=== PATIENT | male | born 1945 | race Caucasian/White ===

== ENCOUNTER → 2016-08-16 10:01 | Outpatient (CLI) | payer MEDICARE ==
--- NOTE | 2016-08-16 14:19 | NUR ---
Nutrition education for hyperglycemia: Pt and present for education. Pt reports only eating 1 meal a day. Reports drinking ~4 ounces of whisky on the rocks every evening after dinner. Pt states he does not eat very much at meals. Pt drinks mostly water to quench thirst. Pt is having trouble with his knees so he is not playing much golf these days. 70 year old male Dx: Hyperglycemia Ht: 5'11" Wt: 235# IBW: 172# +/-10% BMI: 33 Reviewed CHO containing foods and the affect CHO have on glucose. Advised pt to start eating at least three meals every day at about the same time every day. Reviewed sample menus with emphasis on CHO. Reviewed the plate method for meal planning. Provided pt with printed diet information and RDN name and phone number. Pt with good understanding of information provided. RDN will be available if needed. Thank you for the consult.
== END | disposition home or self-care (01) ==
LOC: D.FANS 10:01
DX: R73.9 Hyperglycemia, unspecified (principal)

== ENCOUNTER → 2018-03-14 09:49 | Outpatient (CLI) | payer MEDICARE ==
[~2018-03-14 09:49] MED LIST: ASPIRIN EC81 M1 PO; ELIQUIS2.5 MG PO; HYZAAR 100-25 T1 TAB PO; KEFLEX500 MG PO; MOBIC7.5 MG PO; NORVASC10 MG PO; OXYCODONE HCL5 MG PO; PRAVACHOL40 MG PO; TENORMIN100 MG PO; VISTARIL50 MG PO
[2018-03-27 22:13] VITALS: BMI 34.6
== END | disposition home or self-care (01) ==
LOC: D.LABREF 09:49
DX: M17.11 Unilateral primary osteoarthritis, right knee (principal); Z11.8 Encounter for screening for other infectious and parasitic diseases

== ENCOUNTER 2018-03-21 10:00 | Inpatient (IN) | payer OTHER ==
[~2018-03-21] VITALS: Ht 180.3 cm; Wt 112.7 kg
--- NOTE | ~2018-03-21 | OP ---
PATIENT NAME: ASUNCION CASEY MEDICAL RECORD: [id number] :44 LOCATION:[id number] ADMISSION DATE:03/27/18 SURGEON: CULLEN WICK DO DATE OF OPERATION: 03/27/2018 PROCEDURE PERFORMED: Right total knee arthroplasty. PREOPERATIVE DIAGNOSIS: Right end-stage knee osteoarthritis. POSTOPERATIVE DIAGNOSIS: Right end-stage knee osteoarthritis. INDICATIONS: Mr. Casey is a 72-year-old male who presented to my office last year. He said he wanted to do everything he could to not have total knee replacement. We tried rounds of injections, which eventually did not work for him. He was tired of affecting his activities of daily living and wanted a total knee replacement. He is warned of the risks and benefits of the procedure, warned of infection, bleeding, need for further surgery, damage to nerves and vessels. He was okay with that and blood clots also the risk and he consented to the procedure. SURGEON: Cullen Wick DO DESCRIPTION OF PROCEDURE: The patient was given a block in the preoperative area by anesthesia and taken to the operative suite, laid in supine position, given general anesthetic and intubated, given 2 grams of Ancef preoperatively. The right knee was prepped and draped in a sterile fashion. Timeout was performed, everyone was in agreement with the correct side, site and patient and procedure. The incision was then marked out and Ioban placed over the incision. We did not use a tourniquet during this total knee procedure. Incision was made down to the capsule itself coagulating all bleeders with the Aquamantys and then the capsulotomy was performed with a fresh blade using medial parapatellar incision. Again, all bleeders were coagulated throughout the case with the Aquamantys. The fat pad was then removed. The patella was everted and milled down to fit the patellar implant. The knee was then flexed up and the intramedullary guide was put in reaming into the intramedullary canal. Once the distal femur guide was put into place, pins were put in to hold the jig and it was cut. Then the tibia was exposed and the tibia was cut as well and the knee was brought into extension and lamina media reporter was used to open up the knee and all the debris from the cut and the menisci were removed and the posterior capsule was treated at that time with the Aquamantys as well as the medial and lateral geniculates. The extension block then fit well. The knee was then flexed up and measured the femur, measured to be 70. The implant was put in, the poly tray was floated in for the tibia and tibial tray arranged and then marked the rotation. This was removed and the tibia was drilled and the femur was also drilled. The trial was then removed and the femur, tibia was exposed and sized to be 75. This was punched and drilled and the cement was mixed and then cemented was placed on the tibia as well as on the implant, impacted twice and excess cement was removed and the femur was impacted into place and then the cement was put on the patella itself and the patella implant. The squeezer was used to squeeze it down and the excess cement was removed. Once the cement dried, trialed the knee with a 10 poly and that seemed to fit very well, had good medial and lateral stability as well and this was then inserted, a 10 poly. The locking mechanism was used to lock it into place. Then, the capsule was closed with #1 Vicryl in [id number] fashion and Stratafix was ran on the capsule. Vancomycin powder and Surgicel beads were placed in the joint and OPERATIVE REPORT [id number] ASUNCION CASEY vancomycin powder was placed on top of the joint as well and then the skin was closed with 2-0 Vicryl in inverted interrupted fashion. A ZipLine was put on the Adaptic, 4 x 4s, ABD, Webril, Jonathan wrap and a DIAMANTE hose stocking was then placed on the knee up to the knee. BLOOD LOSS: Approximately 150 mL. COMPLICATIONS: None. TRANSINT:[id number] Voice Confirmation ID: [id number] DOCUMENT ID: [id number] CULLEN WICK DO at 0720 CC: [id number] DICTATION DATE: 03/27/18 170 TIP PUNCHER: 03/27/18 1828 ADM IN [place] [id number] [place] [id number]
[~2018-03-21 10:00] MED LIST changes: -ELIQUIS2.5 MG PO; -KEFLEX500 MG PO; -OXYCODONE HCL5 MG PO; -VISTARIL50 MG PO
[2018-03-21 11:04] LABS: BASOPHILS 1.2 % (0-2); EOSINOPHILS 3.3 % (0-7); HEMATOCRIT 45.5 % (42.0-54.0); HEMOGLOBIN 15.7 g/dL (13.5-17.5); IMMATURE GRANULOCYTES 0.2 % (0-5); LYMPHOCYTES 25.2 % (15-50); MCH 31.5 pg (26.0-34.0); MCHC 34.5 g/dL (31.0-37.0); MCV 91.2 fL (80.0-100.0); MONOCYTES 10.3 % (2-11); NEUTROPHILS 59.8 % (40-80); PLATELET COUNT 267 10x3/uL (130-400); RBC 4.99 10x6/uL (4.20-6.10); WBC 6.4 10x3/uL (4.8-10.8)
[2018-03-21 11:16] LABS: CALC OSMOLALITY 276 mosm/kg (275-300); CALCIUM 8.8 mg/dL (8.5-10.1); CARBON DIOXIDE 33.6 mmol/L (21.0-32.0); CHLORIDE - SERUM 100 mmol/L (98-107); GLUCOSE 97 mg/dL (74-106); POTASSIUM - SERUM 3.7 mmol/L (3.5-5.1); SODIUM 137 mmol/L (136-145); UREA NITROGEN 22 mg/dL (7-18); eGFR NON AFRICAN AMERICAN 78 mL/min (90-120)
[2018-03-21 11:37] LABS: INR 0.91 (0.85-1.17); PROTIME 11.9 SECONDS (11.6-15.0)
[2018-03-21 11:38] LABS: APTT 27.2 SECONDS (22.8-39.4)
[2018-03-21 11:39] LABS: APPEARANCE CLEAR (CLEAR); BILIRUBIN NEGATIVE (NEGATIVE); COLOR YELLOW (YELLOW); GLUCOSE NEGATIVE (NEGATIVE); KETONE NEGATIVE (NEGATIVE); NITRITE NEGATIVE (NEGATIVE); PROTEIN NEGATIVE (NEGATIVE)
[2018-03-27 10:15] VITALS: BP 153/82; BMI 34.8
[2018-03-27 18:02] VITALS: BP 152/83
[2018-03-27 22:13] VITALS: BP 125/63; Ht 180.3 cm; Wt 112.7 kg
[2018-03-28 06:00] VITALS: BP 138/76
[2018-03-28 06:07] LABS: BASOPHILS 0.1 % (0-2); EOSINOPHILS 0 % (0-7); HEMATOCRIT 41.9 % (42.0-54.0); HEMOGLOBIN 14.4 g/dL (13.5-17.5); IMMATURE GRANULOCYTES 0.2 % (0-5); LYMPHOCYTES 5.4 % (15-50); MCH 31.3 pg (26.0-34.0); MCHC 34.4 g/dL (31.0-37.0); MCV 91.1 fL (80.0-100.0); MEAN PLATELET VOLUME 11.5 fL (7.4-10.4); MONOCYTES 4.9 % (2-11); NEUTROPHILS 89.4 % (40-80); PLATELET COUNT 238 10x3/uL (130-400); RDW 13.7 % (11.5-14.5)
[2018-03-28 06:30] LABS: ALBUMIN 3.1 g/dL (3.4-5.0); ANION GAP 12.2 mmol/L (8-16); BILIRUBIN - TOTAL 0.57 mg/dL (0.2-1.3); CALCIUM 8.1 mg/dL (8.5-10.1); CARBON DIOXIDE 26.8 mmol/L (21.0-32.0); CREATININE - SERUM 1.2 mg/dL (0.6-1.3)
[2018-03-28 08:17] VITALS: BP 149/76
[2018-03-28 13:47] VITALS: BP 151/75
[2018-03-28 16:38] VITALS: BP 161/79
[2018-03-28 21:13] VITALS: BP 114/71
[2018-03-29 05:14] VITALS: BP 134/64
[2018-03-29 05:31] VITALS: BP 124/74
[2018-03-29 05:53] LABS: BASOPHILS 0.2 % (0-2); EOSINOPHILS 0.3 % (0-7); HEMOGLOBIN 12.9 g/dL (13.5-17.5); IMMATURE GRANULOCYTES 0.1 % (0-5); LYMPHOCYTES 13.8 % (15-50); MCH 30.9 pg (26.0-34.0); MCHC 33.9 g/dL (31.0-37.0); MCV 91.1 fL (80.0-100.0); MEAN PLATELET VOLUME 11.4 fL (7.4-10.4); MONOCYTES 14.7 % (2-11); NEUTROPHILS 70.9 % (40-80); PLATELET COUNT 216 10x3/uL (130-400); RBC 4.17 10x6/uL (4.20-6.10); RDW 13.7 % (11.5-14.5); WBC 10.2 10x3/uL (4.8-10.8)
[2018-03-29 06:29] LABS: ALBUMIN 3.1 g/dL (3.4-5.0); ALKALINE PHOSPHATASE 67 U/L (46-116); ALT (SGPT) 28 U/L (10-68); BILIRUBIN - TOTAL 0.65 mg/dL (0.2-1.3); CALC OSMOLALITY 277 mosm/kg (275-300); CALCIUM 8.1 mg/dL (8.5-10.1); CARBON DIOXIDE 30.4 mmol/L (21.0-32.0); CHLORIDE - SERUM 100 mmol/L (98-107); GLUCOSE 106 mg/dL (74-106); POTASSIUM - SERUM 3.7 mmol/L (3.5-5.1); PROTEIN - SERUM 6.3 g/dL (6.4-8.2); SODIUM 138 mmol/L (136-145); UREA NITROGEN 18 mg/dL (7-18); eGFR NON AFRICAN AMERICAN 78 mL/min (90-120)
[2018-03-29 09:30] VITALS: BP 185/88
[2018-03-29 12:34] VITALS: BP 155/85
[2018-03-29 18:35] VITALS: BP 160/77
[2018-03-29 21:05] VITALS: BP 134/77
[2018-03-30 05:04] LABS: HEMATOCRIT 34.3 % (42.0-54.0); HEMOGLOBIN 11.8 g/dL (13.5-17.5); MCH 31.4 pg (26.0-34.0); MCHC 34.4 g/dL (31.0-37.0); MCV 91.2 fL (80.0-100.0); MEAN PLATELET VOLUME 10.8 fL (7.4-10.4); NEUTROPHILS 64.5 % (40-80); PLATELET COUNT 174 10x3/uL (130-400); RBC 3.76 10x6/uL (4.20-6.10); RDW 13.2 % (11.5-14.5)
[2018-03-30 05:07] VITALS: BP 153/76
[2018-03-30 05:12] LABS: WBC 6.9 10x3/uL (4.8-10.8)
[2018-03-30 05:23] LABS: ALBUMIN 2.8 g/dL (3.4-5.0); BILIRUBIN - TOTAL 0.87 mg/dL (0.2-1.3); CALCIUM 7.9 mg/dL (8.5-10.1); CARBON DIOXIDE 31.3 mmol/L (21.0-32.0); CREATININE - SERUM 1.1 mg/dL (0.6-1.3); POTASSIUM - SERUM 3.3 mmol/L (3.5-5.1); PROTEIN - SERUM 6.4 g/dL (6.4-8.2)
[2018-03-30] MEDS ORDERED: OXYCODONE HCL5 MG PO (07:31)
[2018-03-30] MEDS ORDERED: ELIQUIS2.5 MG PO (07:31)
[2018-03-30] MEDS ORDERED: VISTARIL50 MG PO (07:32)
[2018-03-30] MEDS ORDERED: KEFLEX500 MG PO (07:32)
[2018-03-30 08:44] VITALS: BP 138/63
== END 2018-03-30 10:30 | disposition home or self-care (01) | DRG 470 ==
LOC: D.SDCHOLD 03-27 10:00 → D.MS 03-27 10:00 → D.SDCHOLD 03-27 12:00 → D.MS 03-27 16:45
PROVIDERS: Family Medicine; Orthopaedic Surgery
PROC: 0SRC0J9 Replacement of Right Knee Joint with Synthetic Substitute, Cemented, Open Approach (ICD-10-PCS; principal; 2018-03-27 13:00)
DX: M17.11 Unilateral primary osteoarthritis, right knee (principal); I10 Essential (primary) hypertension; F17.200 Nicotine dependence, unspecified, uncomplicated

== ENCOUNTER 2020-03-25 09:03 | Outpatient (CLI) | payer OTHER ==
[2018-03-27 22:13] VITALS: BMI 34.6
[~2020-03-25 09:03] MED LIST changes: +ELIQUIS2.5 MG PO; +KEFLEX500 MG PO; +OXYCODONE HCL5 MG PO; +VISTARIL50 MG PO
== END 2020-03-25 23:59 | disposition home or self-care (01) ==
LOC: D.MAMMO 09:03
PROVIDERS: ATTEND Family Medicine
DX: N64.4 Mastodynia (principal)

== ENCOUNTER 2020-12-25 05:15 | Day surgery (SDC) | payer OTHER ==
[2020-12-24 12:48] LABS: BASOPHILS 1.4 % (0-2); EOSINOPHILS 3.3 % (0-7); HEMATOCRIT 43.8 % (42.0-54.0); HEMOGLOBIN 14.8 g/dL (13.5-17.5); LYMPHOCYTES 16.2 % (15-50); MCHC 33.7 g/dL (31.0-37.0); MCV 91.8 fL (80.0-100.0); MEAN PLATELET VOLUME 8.4 fL (7.4-10.4); NEUTROPHILS 67.1 % (40-80); RBC 4.77 10x6/uL (4.20-6.10); WBC 8.5 10x3/uL (4.8-10.8)
[2020-12-24 12:50] LABS: CALC OSMOLALITY 270 mosm/kg (275-300); CARBON DIOXIDE 30.2 mmol/L (21.0-32.0); CHLORIDE - SERUM 98 mmol/L (98-107); GLUCOSE 104 mg/dL (74-106); PLATELET COUNT 324 10x3/uL (130-400); POTASSIUM - SERUM 3.8 mmol/L (3.5-5.1); SODIUM 133 mmol/L (136-145); UREA NITROGEN 26 mg/dL (7-18); eGFR NON AFRICAN AMERICAN 77 mL/min (90-120)
[~2020-12-25] VITALS: Ht 180.3 cm; Wt 114.8 kg
[~2020-12-25 05:15] MED LIST changes: +ASPIRIN81 MG PO; +COZAAR100 MG PO; +HYDROCHLOROTH12.5 M1 PO
[2020-12-25 05:44] VITALS: BP 156/78; Ht 180.3 cm; Wt 114.8 kg
--- NOTE | 2020-12-25 10:03 | NUR ---
IV D/C'D WITH CANNULA INTACT, PRESSURE HELD AND DRSG PLACED. DISCHARGE INSTRCTIONS GIVEN TO PT AND , BOTH VERBALIZED AN UNDERSTANDING. DISCHARGED IN STABLE CONDITION AND WITHOUT C/O
--- NOTE | 2020-12-25 15:41 | OP ---
PATIENT NAME: ASUNCION CASEY MEDICAL RECORD: [id number] :44 LOCATION:[facility] ADMISSION DATE: SURGEON: CULLEN WICK DO DATE OF OPERATION: 12/25/2020 PROCEDURE PERFORMED: Right small finger A1 melisa release, left middle finger A1 melisa release and left endoscopic carpal tunnel release. PREOPERATIVE DIAGNOSES: 1. Right small finger trigger finger. 2. Left middle trigger finger. 3. Left carpal tunnel syndrome. POSTOPERATIVE DIAGNOSES: 1. Right small finger trigger finger. 2. Left middle trigger finger. 3. Left carpal tunnel syndrome. INDICATIONS: Mr. Casey is a 75-year-old male who has had a catching in his left middle finger and right small finger and numbness and tingling in the left hand into the median nerve distribution and actually went up into his forearm. It is keeping him up at night and not slept in quite some time. He was tired of dealing with it. I did not get a nerve conduction study due to the fact that he was coming up from [place] and presented yesterday to the clinic to do a preop H&P for the trigger fingers and I informed him of the risks including infection, bleeding, damage to median nerve, continued pain, numbness and tingling, loss of function of the median nerve, recurrence of the trigger fingers, laceration of the flexor tendons, and even , and he signed the consent. SURGEON: Cullen Wick DO DESCRIPTION OF PROCEDURE: The patient was taken to the operative suite, laid in supine position, given general anesthetic and LMA was placed. He was given 2 grams Ancef preoperatively. The bilateral upper extremities were prepped and draped in sterile fashion. A timeout was performed. Everyone was in agreement with the correct site, side, patient, and procedure. I then began on the right side exsanguinating the right hand with an Esmarch and tied it off just proximal to the wrist and it was up for 4 minutes. I then made an incision along the distal palmar crease and then made blunt dissection with Ragnell down to the A1 melisa of the small finger and then released it and pulled the tendon out through the incision and ensured there was no catching. I then removed the Esmarch and then coagulated any bleeding with a bipolar. I then closed it with 3-0 nylon in a horizontal mattress fashion. I then went to the left side, exsanguinated left upper extremity with an Esmarch, tourniquet was inflated to 250 mmHg, it was up for 9 minutes. I then made an incision centered over the palmaris longus tendon. Made careful dissection down to the median nerve, released the fascia from an incision from distal to proximal and then went into the carpal tunnel with the dilators. I then brought in the sheath, brought in the camera, cleaned off the transverse carpal ligament, did not see a transligamentous nerve at all with a probe and rasp and then brought in the blade and raised it up and transected the transverse carpal ligament, fat then herniated down into the site. I then removed the instruments. Used a long end of the Ragnell and scissors to ensure there was no transverse carpal ligament fibers left connecting and there were not. I then went to the middle finger of the distal palmar crease, made incision with 15 blade scalpel, then made careful OPERATIVE REPORT [id number] ASUNCION CASEY dissection down to the A1 melisa and released it under direct visualization with a knife and scissors. I then pulled the flexor tendons out through the incision to ensure there was no catching and there was not. I then let the tourniquet down and injected with 0.25% Marcaine with epinephrine 10 mL total in 2 different sites. I then closed the carpal tunnel site with 5-0 Monocryl in inverted interrupted fashion. Hyun Ag, certified surgical technologist, then closed the trigger finger release site with a 3-0 nylon in usual fashion. He was then dressed with Adaptic, 4 x 4, Kerlix and Coban lightly wrapped. He was awakened and taken to recovery in stable condition. BLOOD LOSS: Minimal. COMPLICATIONS: None. TRANSINT:[id number] Voice Confirmation ID: [id number] DOCUMENT ID: [id number] CULLEN WICK DO at 1541 CC: [id number] DICTATION DATE: 12/25/20810 ENDOSCOPY SPECIALTY TECHNICIAN: 12/25/20 1151 [facility] 12/25/20 [facility] [address] [place] [address]
== END 2020-12-25 09:49 | disposition home or self-care (01) ==
LOC: D.OPS 05:15
PROVIDERS: Anesthesiology; ATTEND Orthopaedic Surgery
DX: M65.351 Trigger finger, right little finger (principal); M65.332 Trigger finger, left middle finger; G56.02 Carpal tunnel syndrome, left upper limb; M25.511 Pain in right shoulder; M25.512 Pain in left shoulder